=== PATIENT | female | born 1990 | race Caucasian/White ===

== ENCOUNTER 2018-07-05 20:16 | Inpatient (IN) | payer MEDICAID ==
[~2018-07-05] VITALS: Ht 157.5 cm; Wt 52.8 kg
[2018-07-05] MEDS ORDERED: SOD CHLORIDE 0.9% 1,000 ML IV STA (22:31)
[2018-07-05] MEDS ORDERED: ONDANSETRON 4 MG INJ IV STA (22:31)
[2018-07-05] MEDS ORDERED: LORAZEPAM 2 MG INJ IV ONE (23:00)
[2018-07-06] VITALS (10 sets, daily range): BP systolic 114–140; BP diastolic 18–89; PULSE 64–97; RESP 17–20; Ht 157.5 cm; Wt 52.8 kg
[2018-07-06] MEDS ORDERED: GABA100C14 PO (00:13)
[2018-07-06] MEDS ORDERED: MULTI PO (00:13)
[2018-07-06] MEDS ORDERED: CYAN100T PO (00:13)
[2018-07-06] MEDS ORDERED: CHOL400T10 PO (00:13)
[2018-07-06] MEDS ORDERED: VENL37.56 PO (00:13)
[2018-07-06] MEDS ORDERED: LORAZEPAM 2 MG INJ IV STA (00:32)
[2018-07-06] MEDS ORDERED: SOD CHLORIDE 0.9% 1,000 ML IV STA (00:32)
[2018-07-06] MEDS ORDERED: DOCUSATE SODIUM 100 MG CAP PO PRN (01:00)
[2018-07-06] MEDS ORDERED: BISACODYL (EC) 5 MG TAB PO PRN (01:00)
[2018-07-06] MEDS ORDERED: ACETAMINOPHEN 325 MG TAB PO PRN (01:00)
[2018-07-06] MEDS ORDERED: ONDANSETRON 4 MG INJ IV PRN (01:00)
[2018-07-06] MEDS ORDERED: LORAZEPAM 2 MG INJ IV PRN (01:00)
[2018-07-06] MEDS ORDERED: MULTIVITAMINS 10 ML, THIAMINE 100 MG, FOLIC ACID 1 MG in SOD CHLORIDE 0.9% 1,000 ML IVPB SCH (01:00)
[2018-07-06] MEDS ORDERED: NACL 0.9% 3 ML SYG IV SCH (01:00)
--- NOTE | 2018-07-06 02:41 | HP ---
Date/Time of Note Date/Time of Note DATE: 07/06/18 TIME: 02:41 Assessment/Plan VTE Prophylaxis SCD applied (from Nsg): Yes Pharmacological prophylaxis: NA/contraindicated Pharm contraindication: low risk/ambulating Lines/Catheters IV Catheter Type (from Nrsg): Saline Lock Assessment/Plan Hospital Course This is a 27-year-old female being admitted to the [facility] floor for observation for: #1 alcohol intoxication/withdrawal: Patient did present with a blood alcohol level of 299. Her last drink was within the last 24 hours. At the current time she does not appear to be anxious she appears pleasant. Will put the patient on PRN Ativan. Librium taper. Banana bag. Thiamine folate, MVI. Will consult social work and case management for rehab options. #2 depression: We will continue Effexor, hold gabapentin at the current time given alcohol use. Psychiatry consultation #3 Alcohol abuse: Treat as per #1. Case management social consultation #4 anxiety: PRN Ativan #5 DVT GI prophylaxis: SCDs, no GI prophylaxis indicated Further treatment strategy will be implemented as per the clinical course. Result Diagram: 07/05/18225007/05/182250 Results 24hrs Laboratory Tests Test 07/05/18 22:51 07/05/18 23:04 07/06/18 00:01 White Blood Count 5.0 Red Blood Count 4.33 Hemoglobin 14.0 Hematocrit 40.6 Mean Corpuscular Volume 93.8 Mean Corpuscular Hemoglobin 32.3 Mean Corpuscular 34.5 Hemoglobin Concent Red Cell Distribution Width 13.8 Platelet Count 177 Mean Platelet Volume 9.2 Immature Granulocytes % 0.400 Neutrophils % 50.8 Lymphocytes % 37.6 Monocytes % 7.6 Eosinophils % 2.6 Basophils % 1.0 Nucleated Red Blood Cells % 0.0 Immature Granulocytes # 0.020 Neutrophils # 2.5 Lymphocytes # 1.9 Monocytes # 0.4 Eosinophils # 0.1 Basophils # 0.1 Nucleated Red Blood Cells # 0.0 Urine Color STRAW Urine Clarity SLIGHTLY CLOUDY A Urine pH 6.0 Urine Specific [place] 1.006 Urine Ketones NEGATIVE Urine Nitrite NEGATIVE Urine Bilirubin NEGATIVE Urine Urobilinogen NEGATIVE Urine Leukocyte Esterase NEGATIVE Urine Microscopic RBC 2 Urine Microscopic WBC 1 Urine Bacteria FEW A Urine Hemoglobin 2+ H Urine Glucose NEGATIVE Urine Total Protein NEGATIVE Sodium Level 141 Potassium Level 3.7 Chloride Level 100 Carbon Dioxide Level 21 Anion Gap 20 H Blood Urea Nitrogen 9 Creatinine 0.54 Est Glomerular Filtrat > 60 Rate mL/min Glucose Level 204 Calcium Level 8.8 Total Bilirubin 0.4 Direct Bilirubin 0.00 Indirect Bilirubin 0.4 Aspartate Amino 73 H Transf (AST/SGOT) Alanine 26 Aminotransferase (ALT/SGPT) Alkaline Phosphatase 70 Total Protein 7.7 Albumin 4.7 Globulin 3.00 Albumin/Globulin Ratio 1.56 Lipase 97 Urine Opiates Screen Negative Urine Barbiturates Negative Urine Amphetamines Screen Negative Urine Benzodiazepines Screen Positive Urine Cocaine Screen Negative Urine Cannabinoids Negative POC Beta HCG, Qualitative NEGATIVE Ethyl Alcohol Level 299.0 H HPI/ROS Admit Date/Time Admit Date/Time Hx of Present Illness Chief complaint: Binge drinking for the last 7 days This is a 27-year-old female who has a history of alcohol abuse presented to the emergency department after a 7-day binge and feeling shaky. Patient reports anisa t she was drinking for the last 7 days and called her father yesterday after she was not feeling well. Her father was concerned and brought her to the emergency department. Patient has been dealing with alcohol abuse for at least the last 1 year or more. She reports depression and anxiety. She also reports that she had her life together with a job and was doing well and then things went bad for her. She states that her father was concerned and brought her to the emergency department. She did feel anxious and shaky earlier as well. She denies any suicidal thoughts or any homicidal thoughts. She has been to a psychiatrist as well as a psychologist. Allergies: NKDA Medications: See WHIT VERAS Const: As per HPI Eyes : No pain discharge or redness or change in visual acuity ENT: No pain, sore throat, congestion, congestion, dysphagia or discharge Respiratory: No shortness of breath, cough, sputum, wheezing, or pleuritic pain Cardiovascular: No chest pain, palpitation, PND, or edema GI : no change in appetite, abdominal pain, nausea, vomiting, diarrhea, constipation, or change in the color his stool Genitourinary: No dysuria, hematuria, flank pain , discharge or CVA tenderness Musculoskeletal: No joint pain, back pain, neck pain, restricted range of motion in neck or joints Skin: No rash, bruising or hives Neuro: No headache, dizziness, syncope, seizure, focal weakness Endocrine: No polyuria, polydipsia, temperature intolerance Psych: As per HPI PMH/Family/Social Past Medical History Heavy alcohol use, depression, night terrors, anxiety, asthma Medications Current Medications IV Flush (NS 3 ml) 3 ml PER PROTOCOL IV ; Start 07/06/18 at 01:00 Lorazepam (Ativan) 1 mg Q2H PRN IV CONTROL WITHDRAWAL SYMPTOMS; Start 07/06/18 at 01:00 Ondansetron HCl (Zofran Inj) 4 mg Q6H PRN IV NAUSEA/VOMITING; Start 07/06/18 at 01:00 Acetaminophen (Tylenol Tab) 650 mg Q6H PRN PO .PAIN 1-3 OR TEMP; Start 07/06/18 at 01:00 Docusate Sodium (Colace) 100 mg Q12H PRN PO .CONSTIPATION; Start 07/06/18 at 01:00 Bisacodyl (Dulcolax) 5 mg DAILY PRN PO .CONSTIPATION; Start 07/06/18 at 01:00 Multivitamins 10 ml/Thiamine HCl 100 mg/Folic Acid 1 mg/Sodium Chloride 1,011.2 ml @ 125 mls/ hr DAILY@09 IVPB Last administered on 07/06/18at 01:40; Admin Dose 125 MLS/HR; Start 07/06/18 at 01:00; Stop 07/06/18 at 08:59 Chlordiazepoxide (Librium) 50 mg TID PO ; Start 07/06/18 at 01:00; Stop 07/07/18 at 00:59 Chlordiazepoxide (Librium) 25 mg QID PO ; Start 07/07/18 at 01:00; Stop 07/08/18 at 00:59 Chlordiazepoxide (Librium) 25 mg TID PO ; Start 07/08/18 at 01:00; Stop 07/09/18 at 00:59 Chlordiazepoxide (Librium) 10 mg QID PO ; Start 07/09/18 at 01:00; Stop 07/10/18 at 00:59 Folic Acid (Folic Acid) 1 mg DAILY PO ; Start 07/06/18 at 09:00 Multivitamins Therapeutic (Theragran) 1 tab DAILY PO ; Start 07/06/18 at 09:00 Thiamine HCl (Vitamin B1) 200 mg DAILY PO ; Start 07/06/18 at 09:00 Lorazepam (Ativan) 2 mg Q2 PRN IV severe withdrawl; Start 07/06/18 at 01:00 Coded Allergies: No Known Drug Allergies (Verified Allergy, Unknown, 07/05/18) Past Surgical History [place] teeth removal, sinus surgery, deviated septum correction Family History Significant Family History: no pertinent family hx Social History Alcohol Use: heavy Smoking Status: Never smoker Drug Use: none Exam/Review of Systems Vital Signs Vitals Vital Signs Date Temp Pulse Resp B/P (MAP) Pulse Ox O2 O2 Flow FiO2 Time Delivery Rate 07/05/18 103 20 115/86 99 Room Air 23:25 (96) 07/05/18 99.2 20:39 Exam Exam General: Patient is a pleasant female currently lying in bed in no acute distress HEENT: Atraumatic, normocephalic. The pupils are equal, round and reactive. Extraocular motor are intact Neck: Supple with full range of motion. No rigidity or meningismus Chest: Nontender Lungs: Clear to auscultation bilaterally no crackles rales or wheezing Heart: Normal S1-S2, Regular rhythm and rate. No murmur, S3, or S4 Abdomen: Soft , nontender, nondistended , bowel sounds are present. No guarding no rebound tenderness , No masses or organomegaly. No costovertebral temporal angle mass Extremities: Normal to inspection, no edema no cyanosis Neurologic: Normal mental status, speech normal, cranial nerves II through XII are intact, motor and sensory are intact, Psych: She does not appear to be suicidal homicidal. She is very pleasant. SARIKA GOMEZ July 06, 2018 02:41
[2018-07-06] MEDS: CHLORDIAZEPOXIDE 25 MG CAP PO SCH ×2 (03:18→09:31)
--- NOTE | 2018-07-06 03:49 | ERD ---
ER Documentation Chief Complaint Chief Complaint states been drinking etoh x 7 days HPI This very pleasant 27-year female states her drinking alcohol for the past 7 days and stop drinking about 14 hours ago. She feels very tremulous and shaky. Denies fevers or chills. Denies any auditory visual hallucinations. Denies any other current problems. ROS All systems reviewed and are negative except as per history of present illness. Medications Home Meds Reported Medications Cyanocobalamin* (Vitamin B12*) 100 Mcg Tab, 100 MCG PO DAILY, TAB 07/06/18 Cholecalciferol* (Vitamin D*) 400 Unit Tablet, 400 UNIT PO DAILY, TAB 07/06/18 Multivitamins* (Theragran*) 1 Tab Tab, 1 TAB PO DAILY, TAB 07/06/18 Gabapentin* (Gabapentin*) 100 Mg Capsule, 100 MG PO TID, #90 CAP 07/06/18 Venlafaxine Hcl* (Effexor*) 37.5 Mg Tablet, 37.5 MG PO BID, TAB 07/06/18 Allergies Allergies: Coded Allergies: No Known Drug Allergies (Verified Allergy, Unknown, 07/05/18) PMhx/Soc Medical and Surgical Hx: pt denies Surgical Hx Hx Psychiatric Problems: Yes (DEPRESSION, ANXIETY) Hx Alcohol Use: No Hx Substance Use: No Hx Tobacco Use: No Smoking Status: Never smoker Physical Exam Vitals Vital Signs Date Temp Pulse Resp B/P (MAP) Pulse Ox O2 O2 Flow FiO2 Time Delivery Rate 07/06/18 116 16 92/56 (68) 98 Room Air 02:56 07/05/18 103 20 115/86 99 Room Air 23:25 (96) 07/05/18 99.2 117 20 132/94 96 20:39 (107) Physical Exam Const: No acute distress Head: Atraumatic Eyes: Normal Conjunctiva ENT: Normal External Ears, Nose and Mouth. Neck: Full range of motion. No meningismus. Resp: Clear to auscultation bilaterally Cardio: Regular rate and rhythm, no murmurs Abd: Soft, non tender, non distended. Normal bowel sounds Skin: No petechiae or rashes Back: No midline or flank tenderness Ext: No cyanosis, or edema Neur: Awake and alert Psych: Normal Mood and Affect Result Diagram: 07/05/18225007/05/182250 Results 24 hrs Laboratory Tests Test 07/05/18 22:51 07/05/18 23:04 07/06/18 00:01 White Blood Count 5.0 10^3/ul Red Blood Count 4.33 10^6/ul Hemoglobin 14.0 g/dl Hematocrit 40.6 % Mean Corpuscular Volume 93.8 fl Mean Corpuscular Hemoglobin 32.3 pg Mean Corpuscular 34.5 g/dl Hemoglobin Concent Red Cell Distribution Width 13.8 % Platelet Count 177 10^3/UL Mean Platelet Volume 9.2 fl Immature Granulocytes % 0.400 % Neutrophils % 50.8 % Lymphocytes % 37.6 % Monocytes % 7.6 % Eosinophils % 2.6 % Basophils % 1.0 % Nucleated Red Blood Cells % 0.0 /100WBC Immature Granulocytes # 0.020 10^3/ul Neutrophils # 2.5 10^3/ul Lymphocytes # 1.9 10^3/ul Monocytes # 0.4 10^3/ul Eosinophils # 0.1 10^3/ul Basophils # 0.1 10^3/ul Nucleated Red Blood Cells # 0.0 10^3/ul Urine Color STRAW Urine Clarity SLIGHTLY CLOUDY Urine pH 6.0 Urine Specific [place] 1.006 Urine Ketones NEGATIVE mg/dL Urine Nitrite NEGATIVE mg/dL Urine Bilirubin NEGATIVE mg/dL Urine Urobilinogen NEGATIVE mg/dL Urine Leukocyte Esterase NEGATIVE Haim/ul Urine Microscopic RBC 2 /HPF Urine Microscopic WBC 1 /HPF Urine Bacteria FEW /HPF Urine Hemoglobin 2+ mg/dL Urine Glucose NEGATIVE mg/dL Urine Total Protein NEGATIVE mg/dl Sodium Level 141 mmol/L Potassium Level 3.7 mmol/L Chloride Level 100 mmol/L Carbon Dioxide Level 21 mmol/L Anion Gap 20 Blood Urea Nitrogen 9 mg/dl Creatinine 0.54 mg/dl Est Glomerular Filtrat > 60 mL/min Rate mL/min Glucose Level 204 mg/dl Calcium Level 8.8 mg/dl Total Bilirubin 0.4 mg/dl Direct Bilirubin 0.00 mg/dl Indirect Bilirubin 0.4 mg/dl Aspartate Amino Transf (AST/SGOT) 73 IU/L Alanine 26 IU/L Aminotransferase (ALT/SGPT) Alkaline Phosphatase 70 IU/L Total Protein 7.7 g/dl Albumin 4.7 g/dl Globulin 3.00 g/dl Albumin/Globulin Ratio 1.56 Lipase 97 U/L Urine Opiates Screen Negative Urine Barbiturates Negative Urine Amphetamines Screen Negative Urine Benzodiazepines Screen Positive Urine Cocaine Screen Negative Urine Cannabinoids Negative POC Beta HCG, Qualitative NEGATIVE Ethyl Alcohol Level 299.0 mg/dl Current Medications Medications Dose Sig/Nicola Start Time Status Last (Trade) Ordered Route PRN Stop Time Admin Dose Reason Admin Sodium 1,000 ml @ Q1H STAT 07/05/18 DC 07/05/18 Chloride 1,000 mls/hr IV 22:31 23:03 07/05/18 23:30 Ondansetron 4 mg ONCE STAT 07/05/18 DC 07/05/18 HCl (Zofran IV 22:31 23:03 Inj) 07/05/18 22:32 Lorazepam 1 mg ONCE ONCE 07/05/18 DC 07/05/18 (Ativan) IV 23:00 23:03 07/05/18 23:01 Sodium 1,000 ml @ Q1H STAT 07/06/18 DC 07/06/18 Chloride 1,000 mls/hr IV 00:32 00:41 07/06/18 01:31 Lorazepam 1 mg ONCE STAT 07/06/18 DC 07/06/18 (Ativan) IV 00:32 00:41 07/06/18 00:33 IV Flush 3 ml PER 07/06/18 (NS 3 ml) PROTOCOL IV 01:00 Lorazepam 1 mg Q2H PRN 07/06/18 (Ativan) IV CONTROL 01:00 WITHDRAWAL SYMPTOMS Ondansetron 4 mg Q6H PRN 07/06/18 HCl (Zofran IV 01:00 Inj) NAUSEA/VOMITI NG 650 mg Q6H PRN 07/06/18 Acetaminophen PO .PAIN 1-3 01:00 (Tylenol OR TEMP Tab) Docusate 100 mg Q12H PRN 07/06/18 Sodium PO 01:00 (Colace) .CONSTIPATION Bisacodyl 5 mg DAILY PRN 07/06/18 (Dulcolax) PO 01:00 .CONSTIPATION 1,011.2 ml DAILY@09 07/06/18 07/06/18 Multivitamins @ 125 mls/ IVPB 01:00 01:40 10 hr 07/06/18 08:59 ml/Thiamine HCl 100 mg/Folic Acid 1 mg/Sodium Chloride 50 mg TID PO 07/06/18 07/06/18 Chlordiazepox 01:00 03:18 sofie 07/07/18 00:59 (Librium) 25 mg QID PO 07/07/18 Chlordiazepox 01:00 sofie 07/08/18 00:59 (Librium) 25 mg TID PO 07/08/18 Chlordiazepox 01:00 sofie 07/09/18 00:59 (Librium) 10 mg QID PO 07/09/18 Chlordiazepox 01:00 sofie 07/10/18 00:59 (Librium) Folic Acid 1 mg DAILY PO 07/06/18 (Folic Acid) 09:00 1 tab DAILY PO 07/06/18 Multivitamins 09:00 Therapeutic (Theragran) Thiamine 200 mg DAILY PO 07/06/18 HCl 09:00 (Vitamin B1) Lorazepam 2 mg Q2 PRN IV 07/06/18 (Ativan) severe 01:00 withdrawl Procedures/MDM Medical decision making: This very pleasant patient comes in with looks to be acute alcohol withdrawal. Patient is stable, however will likely require inpatient admission. Patient was admitted to Dr. Downing. Given fluids and Ativan here in the emergency department. Departure Diagnosis: Primary Impression: Alcohol withdrawal Complication of substance-induced condition: uncomplicated Qualified Codes: F10.230 - Alcohol dependence with withdrawal, uncomplicated Condition: Stable SUMIT GRAY July 06, 2018 03:49
[2018-07-06] MEDS: FOLIC ACID 1 MG TAB PO SCH (09:31)
[2018-07-06] MEDS: THIAMINE 100 MG TAB PO SCH (09:31)
[2018-07-06] MEDS: MULTIVITAMINS THERAPEUTIC TAB PO SCH (09:31)
[2018-07-06] MEDS ORDERED: CHLORDIAZEPOXIDE 25 MG CAP PO PRN (10:30)
[2018-07-06] MEDS: VENLAFAXINE 37.5 MG TAB PO SCH ×2 (10:59→20:32)
[2018-07-06] MEDS: CYANOCOBALAMIN 100 MCG TAB PO SCH (10:59)
--- NOTE | 2018-07-06 16:00 | PN ---
Date/Time of Note Date/Time of Note DATE: 07/06/18 TIME: 15:58 Assessment/Plan VTE Prophylaxis SCD applied (from Nsg): Yes Pharmacological prophylaxis: heparin Lines/Catheters IV Catheter Type (from Nrsg): Saline Lock Assessment/Plan Hospital Course EXAM: Well appearing NAD AOx3 No fasciculations or tremors RRR CTAB A/P: 27 yo female with etoh use d/o brought to ED by her father for acute alcohol intoxication - Continue supportive care - Librium PRN for anxiety or withdrawal symptoms - policy services representative consult for rehab options Result Diagram: 07/05/18225007/05/182250 Results 24hrs Laboratory Tests Test 07/05/18 22:51 07/05/18 23:04 07/06/18 00:01 White Blood Count 5.0 Red Blood Count 4.33 Hemoglobin 14.0 Hematocrit 40.6 Mean Corpuscular Volume 93.8 Mean Corpuscular Hemoglobin 32.3 Mean Corpuscular 34.5 Hemoglobin Concent Red Cell Distribution Width 13.8 Platelet Count 177 Mean Platelet Volume 9.2 Immature Granulocytes % 0.400 Neutrophils % 50.8 Lymphocytes % 37.6 Monocytes % 7.6 Eosinophils % 2.6 Basophils % 1.0 Nucleated Red Blood Cells % 0.0 Immature Granulocytes # 0.020 Neutrophils # 2.5 Lymphocytes # 1.9 Monocytes # 0.4 Eosinophils # 0.1 Basophils # 0.1 Nucleated Red Blood Cells # 0.0 Urine Color STRAW Urine Clarity SLIGHTLY CLOUDY A Urine pH 6.0 Urine Specific [place] 1.006 Urine Ketones NEGATIVE Urine Nitrite NEGATIVE Urine Bilirubin NEGATIVE Urine Urobilinogen NEGATIVE Urine Leukocyte Esterase NEGATIVE Urine Microscopic RBC 2 Urine Microscopic WBC 1 Urine Bacteria FEW A Urine Hemoglobin 2+ H Urine Glucose NEGATIVE Urine Total Protein NEGATIVE Sodium Level 141 Potassium Level 3.7 Chloride Level 100 Carbon Dioxide Level 21 Anion Gap 20 H Blood Urea Nitrogen 9 Creatinine 0.54 Est Glomerular Filtrat > 60 Rate mL/min Glucose Level 204 Calcium Level 8.8 Total Bilirubin 0.4 Direct Bilirubin 0.00 Indirect Bilirubin 0.4 Aspartate Amino 73 H Transf (AST/SGOT) Alanine 26 Aminotransferase (ALT/SGPT) Alkaline Phosphatase 70 Total Protein 7.7 Albumin 4.7 Globulin 3.00 Albumin/Globulin Ratio 1.56 Lipase 97 Urine Opiates Screen Negative Urine Barbiturates Negative Urine Amphetamines Screen Negative Urine Benzodiazepines Screen Positive Urine Cocaine Screen Negative Urine Cannabinoids Negative POC Beta HCG, Qualitative NEGATIVE Ethyl Alcohol Level 299.0 H Subjective 24 Hr Interval Summary Free Text/Dictation No longer showing signs of intoxication No withdrawal Reports chronic anxiety, father worried about her returning home Denies suicidality Says she is incredibly anxious when she is alone She sees a psychotherapist as outpatient Requesting referral to alcohol rehab programs Exam/Review of Systems Exam Vitals Vital Signs Date Temp Pulse Resp B/P (MAP) Pulse Ox O2 O2 Flow FiO2 Time Delivery Rate 07/06/18 98.4 85 17 129/89 98 15:41 (102) 07/06/18 Room Air 08:25 Results Results 24hrs Laboratory Tests Test 07/05/18 22:51 07/05/18 23:04 07/06/18 00:01 White Blood Count 5.0 Red Blood Count 4.33 Hemoglobin 14.0 Hematocrit 40.6 Mean Corpuscular Volume 93.8 Mean Corpuscular Hemoglobin 32.3 Mean Corpuscular 34.5 Hemoglobin Concent Red Cell Distribution Width 13.8 Platelet Count 177 Mean Platelet Volume 9.2 Immature Granulocytes % 0.400 Neutrophils % 50.8 Lymphocytes % 37.6 Monocytes % 7.6 Eosinophils % 2.6 Basophils % 1.0 Nucleated Red Blood Cells % 0.0 Immature Granulocytes # 0.020 Neutrophils # 2.5 Lymphocytes # 1.9 Monocytes # 0.4 Eosinophils # 0.1 Basophils # 0.1 Nucleated Red Blood Cells # 0.0 Urine Color STRAW Urine Clarity SLIGHTLY CLOUDY A Urine pH 6.0 Urine Specific [place] 1.006 Urine Ketones NEGATIVE Urine Nitrite NEGATIVE Urine Bilirubin NEGATIVE Urine Urobilinogen NEGATIVE Urine Leukocyte Esterase NEGATIVE Urine Microscopic RBC 2 Urine Microscopic WBC 1 Urine Bacteria FEW A Urine Hemoglobin 2+ H Urine Glucose NEGATIVE Urine Total Protein NEGATIVE Sodium Level 141 Potassium Level 3.7 Chloride Level 100 Carbon Dioxide Level 21 Anion Gap 20 H Blood Urea Nitrogen 9 Creatinine 0.54 Est Glomerular Filtrat > 60 Rate mL/min Glucose Level 204 Calcium Level 8.8 Total Bilirubin 0.4 Direct Bilirubin 0.00 Indirect Bilirubin 0.4 Aspartate Amino 73 H Transf (AST/SGOT) Alanine 26 Aminotransferase (ALT/SGPT) Alkaline Phosphatase 70 Total Protein 7.7 Albumin 4.7 Globulin 3.00 Albumin/Globulin Ratio 1.56 Lipase 97 Urine Opiates Screen Negative Urine Barbiturates Negative Urine Amphetamines Screen Negative Urine Benzodiazepines Screen Positive Urine Cocaine Screen Negative Urine Cannabinoids Negative POC Beta HCG, Qualitative NEGATIVE Ethyl Alcohol Level 299.0 H Medications Medication Current Medications IV Flush (NS 3 ml) 3 ml PER PROTOCOL IV ; Start 07/06/18 at 01:00 Lorazepam (Ativan) 1 mg Q2H PRN IV CONTROL WITHDRAWAL SYMPTOMS; Start 07/06/18 at 01:00 Ondansetron HCl (Zofran Inj) 4 mg Q6H PRN IV NAUSEA/VOMITING; Start 07/06/18 at 01:00 Acetaminophen (Tylenol Tab) 650 mg Q6H PRN PO .PAIN 1-3 OR TEMP; Start 07/06/18 at 01:00 Docusate Sodium (Colace) 100 mg Q12H PRN PO .CONSTIPATION; Start 07/06/18 at 01:00 Bisacodyl (Dulcolax) 5 mg DAILY PRN PO .CONSTIPATION; Start 07/06/18 at 01:00 Folic Acid (Folic Acid) 1 mg DAILY PO Last administered on 07/06/18at 09:31; Admin Dose 1 MG; Start 07/06/18 at 09:00 Multivitamins Therapeutic (Theragran) 1 tab DAILY PO Last administered on 07/06/18at 09:31; Admin Dose 1 TAB; Start 07/06/18 at 09:00 Thiamine HCl (Vitamin B1) 200 mg DAILY PO Last administered on 07/06/18at 09:31; Admin Dose 200 MG; Start 07/06/18 at 09:00 Lorazepam (Ativan) 2 mg Q2 PRN IV severe withdrawl; Start 07/06/18 at 01:00 Cyanocobalamin (Vitamin B12) 100 mcg DAILY PO Last administered on 07/06/18at 10:59; Admin Dose 100 MCG; Start 07/06/18 at 09:00 Venlafaxine HCl (Effexor) 37.5 mg BID PO Last administered on 07/06/18at 10:59; Admin Dose 37.5 MG; Start 07/06/18 at 09:00 Chlordiazepoxide (Librium) 50 mg TID PRN PO withdrawal; Start 07/06/18 at 10:30 DENYS KELLEY MD July 06, 2018 16:00
--- NOTE | 2018-07-06 17:05 | PSY ---
Date/Time of Note Date/Time of Note DATE: 07/06/18 TIME: 17:03 Psychiatric Subjective Eval Consent Pt consented to telemedicine: No Subjective Evaluation Patient location: inpatient Chief Complaint: states been drinking etoh x 7 days History of present illness Patient is a 27-year-old female who has a history of alcohol abuse and curren tly admitted on telemetry unit for withdrawal. On a [id number] evaluation, patient is increasingly anxious, she reports feeling depressed, she denies suicidal ideation, states she feels like her life is worthless. Patient states she went on a binge drinking because of her anxiety and wanted to use alcohol to treat herself, since her insurance does not pay for anxiety medications. She has poor coping skills. Several bruises were noted on patient's lower extremity and superficial cuts. She denied any source of abuse however patient has several superficial cuts on the legs and thighs and also bruises where noted. Past psychiatric history Long history of anxiety and depression Hospitalization: other Medical history Problems Medical Problems: (1) Alcohol withdrawal Status: Acute Allergies: Coded Allergies: No Known Drug Allergies (Verified Allergy, Unknown, 07/05/18) Substance Abuse Substance abuse history: Yes Prior substance abuse treatmen: No Social History Marital status: other DPA/Conservatorship: No Psychiatric Objective Eval Review of Systems: Review of Systems: Not Applicable Physical Examination: Physical Examination: Not Applicable Appetite: Decreased Energy: Decreased Interest: Decreased Mental Status Examination: Appearance: Groomed Eye Contact: Good Psychomotor Activity: Other (Anxious) Behavior: Cooperative Speech: Clear AFFECT: Anxious Mood: Anxious Though Process: Linear Thought Content: Normal Orientation: x4 Attention Span: Distractible Laboratory Results Laboratory Tests Test 07/05/18 22:51 07/05/18 23:04 07/06/18 00:01 White Blood Count 5.0 10^3/ul Red Blood Count 4.33 10^6/ul Hemoglobin 14.0 g/dl Hematocrit 40.6 % Mean Corpuscular Volume 93.8 fl Mean Corpuscular Hemoglobin 32.3 pg Mean Corpuscular 34.5 g/dl Hemoglobin Concent Red Cell Distribution Width 13.8 % Platelet Count 177 10^3/UL Mean Platelet Volume 9.2 fl Immature Granulocytes % 0.400 % Neutrophils % 50.8 % Lymphocytes % 37.6 % Monocytes % 7.6 % Eosinophils % 2.6 % Basophils % 1.0 % Nucleated Red Blood Cells % 0.0 /100WBC Immature Granulocytes # 0.020 10^3/ul Neutrophils # 2.5 10^3/ul Lymphocytes # 1.9 10^3/ul Monocytes # 0.4 10^3/ul Eosinophils # 0.1 10^3/ul Basophils # 0.1 10^3/ul Nucleated Red Blood Cells # 0.0 10^3/ul Urine Color STRAW Urine Clarity SLIGHTLY CLOUDY Urine pH 6.0 Urine Specific [place] 1.006 Urine Ketones NEGATIVE mg/dL Urine Nitrite NEGATIVE mg/dL Urine Bilirubin NEGATIVE mg/dL Urine Urobilinogen NEGATIVE mg/dL Urine Leukocyte Esterase NEGATIVE Haim/ul Urine Microscopic RBC 2 /HPF Urine Microscopic WBC 1 /HPF Urine Bacteria FEW /HPF Urine Hemoglobin 2+ mg/dL Urine Glucose NEGATIVE mg/dL Urine Total Protein NEGATIVE mg/dl Sodium Level 141 mmol/L Potassium Level 3.7 mmol/L Chloride Level 100 mmol/L Carbon Dioxide Level 21 mmol/L Anion Gap 20 Blood Urea Nitrogen 9 mg/dl Creatinine 0.54 mg/dl Est Glomerular Filtrat > 60 mL/min Rate mL/min Glucose Level 204 mg/dl Calcium Level 8.8 mg/dl Total Bilirubin 0.4 mg/dl Direct Bilirubin 0.00 mg/dl Indirect Bilirubin 0.4 mg/dl Aspartate Amino Transf (AST/SGOT) 73 IU/L Alanine 26 IU/L Aminotransferase (ALT/SGPT) Alkaline Phosphatase 70 IU/L Total Protein 7.7 g/dl Albumin 4.7 g/dl Globulin 3.00 g/dl Albumin/Globulin Ratio 1.56 Lipase 97 U/L Urine Opiates Screen Negative Urine Barbiturates Negative Urine Amphetamines Screen Negative Urine Benzodiazepines Screen Positive Urine Cocaine Screen Negative Urine Cannabinoids Negative POC Beta HCG, Qualitative NEGATIVE Ethyl Alcohol Level 299.0 mg/dl Assessment and Plan Assessment/Diagnosis Diagnosis 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
[2018-07-06] MEDS ORDERED: GABAPENTIN 100 MG CAP PO PRN (17:30)
[2018-07-06] MEDS ORDERED: morphine 2 MG INJ IV STA (20:33)
[2018-07-06] MEDS ORDERED: GUAIFENESIN/DM 5ML CUP PO PRN (20:34)
[2018-07-06] MEDS ORDERED: VENLAFAXINE 37.5 MG TAB PO SCH (21:00)
[2018-07-06] MEDS: GABAPENTIN 100 MG CAP PO SCH (21:48)
[2018-07-07] MEDS: LORAZEPAM 2 MG INJ IV PRN ×2 (00:02→10:15)
[2018-07-07] MEDS ORDERED: CHLORDIAZEPOXIDE 25 MG CAP PO SCH (01:00)
[2018-07-07 01:53] VITALS: BP 108/68; PULSE 88; RESP 18
[2018-07-07 07:59] VITALS: BP 117/77; PULSE 64; RESP 16
[2018-07-07] MEDS: MULTIVITAMINS THERAPEUTIC TAB PO SCH (10:14)
[2018-07-07] MEDS: FOLIC ACID 1 MG TAB PO SCH (10:14)
[2018-07-07] MEDS: GABAPENTIN 100 MG CAP PO SCH ×2 (10:14→12:04)
[2018-07-07] MEDS: THIAMINE 100 MG TAB PO SCH (10:14)
[2018-07-07] MEDS: VENLAFAXINE 37.5 MG TAB PO SCH (10:14)
[2018-07-07] MEDS: CYANOCOBALAMIN 100 MCG TAB PO SCH (10:14)
[2018-07-07 15:19] VITALS: BP 122/78; PULSE 71; RESP 17
--- NOTE | 2018-07-07 15:34 | DS ---
Date/Time of Note Date/Time of Note DATE: 07/07/18 TIME: 15:30 Discharge Summary Admission/Discharge Info Admit Date/Time July 06, 2018 at 00:31 Discharge Date/Time Discharge Diagnosis Alcohol use disorder Patient Condition: Stable Hospital Course 27 yo female with etoh use d/o brought to ED by her father for acute alcohol intoxication She as provided with supportive care. Librium PRN was given for anxiety and withdrawal symptoms - medical and health services manager was consulted for rehab options Psychiatry cleared for discharge Home Meds Reported Medications Cyanocobalamin* (Vitamin B12*) 100 Mcg Tab, 100 MCG PO DAILY, TAB 07/06/18 Cholecalciferol* (Vitamin D*) 400 Unit Tablet, 400 UNIT PO DAILY, TAB 07/06/18 Multivitamins* (Theragran*) 1 Tab Tab, 1 TAB PO DAILY, TAB 07/06/18 Gabapentin* (Gabapentin*) 100 Mg Capsule, 100 MG PO TID, #90 CAP 07/06/18 Venlafaxine Hcl* (Effexor*) 37.5 Mg Tablet, 37.5 MG PO BID, TAB 07/06/18 Primary Care Provider Care Physician No Primary Pending Labs Laboratory Tests Test 07/07/18 04:31 White Blood Count 4.1 10^3/ul (4.8-10.8) Red Blood Count 3.85 10^6/ul (4.20-5.40) Hemoglobin 12.4 g/dl (12.0-16.0) Hematocrit 36.4 % (37.0-47.0) Mean Corpuscular Volume 94.5 fl (82.0-101.0) Mean Corpuscular Hemoglobin 32.2 pg (29.0-33.0) Mean Corpuscular Hemoglobin Concent 34.1 g/dl (32.0-37.0) Red Cell Distribution Width 13.2 % (11.5-14.5) Platelet Count 111 10^3/UL (140-415) Mean Platelet Volume 9.3 fl (7.4-10.4) Immature Granulocytes % 0.200 % (0.001-0.429) Neutrophils % 54.9 % (39.0-77.0) Lymphocytes % 32.8 % (15.0-51.0) Monocytes % 6.8 % (0.0-11.0) Eosinophils % 5.1 % (0.0-7.0) Basophils % 0.2 % (0.0-2.0) Nucleated Red Blood Cells % 0.0 /100WBC (0.0-0.0) Immature Granulocytes # 0.010 10^3/ul (0.0-0.031) Neutrophils # 2.3 10^3/ul (1.6-7.5) Lymphocytes # 1.4 10^3/ul (0.8-2.9) Monocytes # 0.3 10^3/ul (0.3-0.9) Eosinophils # 0.2 10^3/ul (0.0-0.5) Basophils # 0.0 10^3/ul (0.0-0.1) Nucleated Red Blood Cells # 0.0 10^3/ul (0.0-0.0) Sodium Level 137 mmol/L (135-144) Potassium Level 3.6 mmol/L (3.5-5.1) Chloride Level 103 mmol/L (97-110) Carbon Dioxide Level 28 mmol/L (21-31) Anion Gap 6 (5-13) Blood Urea Nitrogen 5 mg/dl (7-20) Creatinine 0.46 mg/dl (0.44-1.00) Est Glomerular Filtrat Rate mL/min > 60 mL/min (>60) Glucose Level 93 mg/dl (70-220) Calcium Level 8.8 mg/dl (8.4-10.2) Total Bilirubin 0.9 mg/dl (0.2-1.3) Direct Bilirubin 0.00 mg/dl (0.00-0.20) Indirect Bilirubin 0.9 mg/dl (0-1.1) Aspartate Amino Transf (AST/SGOT) 52 IU/L (15-46) Alanine Aminotransferase (ALT/SGPT) 26 IU/L (13-69) Alkaline Phosphatase 50 IU/L (42-121) Total Protein 6.3 g/dl (6.1-8.1) Albumin 3.7 g/dl (3.3-4.9) Globulin 2.60 g/dl (1.3-3.2) Albumin/Globulin Ratio 1.42 DENYS KELLEY MD July 07, 2018 15:34
[2018-07-07] MEDS ORDERED: VENL50TA2 PO (16:02)
[2018-07-08] MEDS ORDERED: CHLORDIAZEPOXIDE 25 MG CAP PO SCH (01:00)
[2018-07-09] MEDS ORDERED: CHLORDIAZEPOXIDE 5 MG CAP PO SCH (01:00)
== END 2018-07-07 16:55 | disposition home or self-care (01) | DRG 897 ==
LOC: E/R 20:16 → TEL 07-06 00:31 → 2NE 07-06 23:48
PROVIDERS: ADMIT Family Medicine; ATTEND Internal Medicine
DX: F10.239 Alcohol dependence with withdrawal, unspecified (principal); F33.2 Major depressive disorder, recurrent severe without psychotic features; F10.229 Alcohol dependence with intoxication, unspecified; Y90.8 Blood alcohol level of 240 mg/100 ml or more; F41.9 Anxiety disorder, unspecified
CPT/HCPCS: 36415; 80053; 80307; 81001; 81025; 83690; 85025; 96374; 96375; J2060; J2270; J2405; J3411; J7030

== ENCOUNTER 2018-08-04 21:42 | Emergency (ER) | payer MEDICAID ==
[~2018-08-04] VITALS: Ht 157.5 cm; Wt 49.6 kg
[~2018-08-04 21:42] MED LIST: CHOL400T10 PO; CYAN100T PO; GABA100C14 PO; MULTI PO; VENL50TA2 PO
[2018-08-04 21:56] VITALS: Ht 157.5 cm; Wt 49.6 kg
[2018-08-04] MEDS ORDERED: SOD CHLORIDE 0.9% 1,000 ML IV STA (22:57)
[2018-08-04] MEDS ORDERED: LORAZEPAM 2 MG INJ IV ONE (23:00)
--- NOTE | 2018-08-05 00:04 | ERD ---
ER Documentation Chief Complaint Chief Complaint ETOH WITHDRAWL, ACUTE ANXIETY HPI This is a very pleasant 27-year-old female comes in with acute anxiety secondary to alcohol withdrawal. So she has not had any withdrawal medications there is and she was discharged. She denies any fevers chills nausea vomiting. Denies any suicidal homicidal ideation. Denies any auditory or visual hallucinations. ROS All systems reviewed and are negative except as per history of present illness. Medications Home Meds Active Scripts Venlafaxine Hcl* (Venlafaxine Hcl*) 50 Mg Tablet, 50 MG PO BID for 30 Days, #60 TAB 3 Refills Prov:DENYS KELLEY MD 07/07/18 Reported Medications Cyanocobalamin* (Vitamin B12*) 100 Mcg Tab, 100 MCG PO DAILY, TAB 07/06/18 Cholecalciferol* (Vitamin D*) 400 Unit Tablet, 400 UNIT PO DAILY, TAB 07/06/18 Multivitamins* (Theragran*) 1 Tab Tab, 1 TAB PO DAILY, TAB 07/06/18 Gabapentin* (Gabapentin*) 100 Mg Capsule, 100 MG PO TID, #90 CAP 07/06/18 Allergies Allergies: Coded Allergies: No Known Drug Allergies (Verified Allergy, Unknown, 07/05/18) PMhx/Soc History of Surgery: Yes (DEVIATED SEPTUM) Anesthesia Reaction: No Hx Neurological Disorder: No Hx Respiratory Disorders: Yes (ASTHMA) Hx Cardiac Disorders: No Hx Psychiatric Problems: Yes (ANXIETY AND DEPRESSION) Hx Miscellaneous Medical Probl: No Hx Alcohol Use: Yes (ETOH abuse) Hx Substance Use: No Hx Tobacco Use: No Smoking Status: Never smoker Physical Exam Vitals Vital Signs Date Temp Pulse Resp B/P (MAP) Pulse Ox O2 O2 Flow FiO2 Time Delivery Rate 08/04/18 98.7 115 20 131/101 97 Room Air 22:43 (111) 08/04/18 97.9 110 20 136/101 95 21:56 (113) Physical Exam Const: No acute distress Head: Atraumatic Eyes: Normal Conjunctiva ENT: Normal External Ears, Nose and Mouth. Neck: Full range of motion. No meningismus. Resp: Clear to auscultation bilaterally Cardio: Regular rate and rhythm, no murmurs Abd: Soft, non tender, non distended. Normal bowel sounds Skin: No petechiae or rashes Back: No midline or flank tenderness Ext: No cyanosis, or edema Neur: Awake and alert Psych: Normal Mood and Affect Result Diagram: 08/04/18 2305 08/04/18 2305 Results 24 hrs Laboratory Tests Test 08/04/18 23:05 08/04/18 23:18 White Blood Count 8.6 10^3/ul Red Blood Count 4.65 10^6/ul Hemoglobin 14.7 g/dl Hematocrit 43.9 % Mean Corpuscular Volume 94.4 fl Mean Corpuscular Hemoglobin 31.6 pg Mean Corpuscular Hemoglobin Concent 33.5 g/dl Red Cell Distribution Width 13.2 % Platelet Count 404 10^3/UL Mean Platelet Volume 8.1 fl Immature Granulocytes % 0.200 % Neutrophils % 66.2 % Lymphocytes % 22.8 % Monocytes % 6.1 % Eosinophils % 3.4 % Basophils % 1.3 % Nucleated Red Blood Cells % 0.0 /100WBC Immature Granulocytes # 0.020 10^3/ul Neutrophils # 5.7 10^3/ul Lymphocytes # 2.0 10^3/ul Monocytes # 0.5 10^3/ul Eosinophils # 0.3 10^3/ul Basophils # 0.1 10^3/ul Nucleated Red Blood Cells # 0.0 10^3/ul Prothrombin Time 13.5 Sec Prothrombin Time Ratio 1.1 INR International Normalized Ratio 1.02 Activated Partial Thromboplast Time 28.2 Sec Sodium Level 145 mmol/L Potassium Level 4.4 mmol/L Chloride Level 103 mmol/L Carbon Dioxide Level 25 mmol/L Anion Gap 17 Blood Urea Nitrogen 8 mg/dl Creatinine 0.67 mg/dl Est Glomerular Filtrat Rate mL/min > 60 mL/min Glucose Level 144 mg/dl Calcium Level 9.6 mg/dl Total Bilirubin 0.3 mg/dl Direct Bilirubin 0.00 mg/dl Indirect Bilirubin 0.3 mg/dl Aspartate Amino Transf (AST/SGOT) 31 IU/L Alanine Aminotransferase (ALT/SGPT) 19 IU/L Alkaline Phosphatase 54 IU/L Total Protein 8.7 g/dl Albumin 4.8 g/dl Globulin 3.90 g/dl Albumin/Globulin Ratio 1.23 Lipase 65 U/L POC Beta HCG, Qualitative NEGATIVE Current Medications Medications Dose Sig/Nicola Start Time Status Last (Trade) Ordered Route PRN Stop Time Admin Dose Reason Admin Sodium 1,000 ml @ Q1H STAT 08/04/18 DC 08/04/18 Chloride 1,000 mls/hr IV 22:57 23:14 08/04/18 23:56 Lorazepam 2 mg ONCE ONCE 08/04/18 DC 08/04/18 (Ativan) IV 23:00 23:13 08/04/18 23:01 Procedures/MDM Medical decision making: Very pleasant patient comes in unfortunately alcohol withdrawal syndrome. She was treated with Ativan and fluids and felt much better. At this point clinically stable for outpatient management patient will be discharged home with Librium along with very clear Ativan. She is to follow- up with outpatient treatment which she understands Departure Diagnosis: Primary Impression: Alcohol withdrawal syndrome Complication of substance-induced condition: uncomplicated Qualified Codes: F10.230 - Alcohol dependence with withdrawal, uncomplicated Condition: Stable SUMIT GRAY Aug 05, 2018 00:04
[2018-08-05] MEDS ORDERED: CHLO25CA9 PO (00:06)
[2018-08-05] MEDS ORDERED: LORA1TAB PO (00:06)
[2018-08-05 00:19] VITALS: BP 121/95; PULSE 76; RESP 18
[2018-08-05] MEDS ORDERED: LORAZEPAM 2 MG INJ IV ONE (00:30)
== END 2018-08-05 00:47 | disposition home or self-care (01) ==
LOC: E/R 21:42
DX: F10.230 Alcohol dependence with withdrawal, uncomplicated (principal); J45.909 Unspecified asthma, uncomplicated; R40.2142 Coma scale, eyes open, spontaneous, at arrival to emergency department; R40.2362 Coma scale, best motor response, obeys commands, at arrival to emergency department; R40.2252 Coma scale, best verbal response, oriented, at arrival to emergency department
CPT/HCPCS: 36415; 80053; 81001; 81025; 83690; 85025; 85610; 85730; 96374; 96376; J2060; J7030; Z7502